=== PATIENT | male | born 1970 | race Caucasian/White ===

== ENCOUNTER 2020-11-14 08:12 | Emergency (ER) | payer SELFPAY ==
[~2020-11-14] VITALS: Ht 185.4 cm; Wt 67.3 kg
[2020-11-14 08:15] VITALS: BP 110/76
[2020-11-14 09:08] LABS: MICROSCOPIC INDICATED
== END 2020-11-14 09:33 | disposition home or self-care (01) ==
LOC: ED 09:16
DX: Z00.00 Encounter for general adult medical examination without abnormal findings (principal); F17.200 Nicotine dependence, unspecified, uncomplicated
CPT/HCPCS: 81001; 87086; 99283